=== PATIENT | male | born 1945 | race Caucasian/White ===

== ENCOUNTER 2021-06-20 12:40 | Outpatient (CLI) | payer MEDICARE, OTHER ==
--- NOTE | 2021-06-20 16:28 | Ultrasound Report ---
PROCEDURE: Retroperitoneal INDICATIONS: RENAL MASS TECHNIQUE: Real-time scanning was performed of the retroperitoneal organs, with image documentation. COMPARISON: Reference is made to the CT abdomen dated May 25, 2021. TECHNIQUE: Sonographic evaluation of the kidneys was performed. FINDINGS: RIGHT KIDNEY: Nephrectomy. LEFT KIDNEY: Measures 13.1 cm in length. The renal cortex thickness measures 1.4 to cm. Normal contour and echotexture. Preservation of the cortical thickness and cortical medullary differe ntiation. No hydronephrosis. An exophytic, hypoechoic 1.4 x 1.1 x 1.4 cm lesion is seen superior pole , which exhibits poor through transmission. OTHER: Prevoid bladder volume: 56 mL Post void bladder volume: 0 mL The left ureter jet is seen. The prostate measures 4.3 x 3.6 x 3.8 cm. IMPRESSION: 1.Exophytic, hypoechoic lesion in left kidney as detailed above, which may reflect a proteinaceous or hemorrhagic cyst. Magnetic resonance imaging may be helpful for further characterization. Reviewed by: Justin Buckley MD on 06/20/2021 4:26 PM PDT Approved by: Justin Buckley MD on 06/20/2021 4:26 PM PDT Station ID: [id number]
== END 2021-06-20 12:41 | disposition home or self-care (01) ==
LOC: DI 12:40
PROVIDERS: ATTEND Internal Medicine
DX: C83.19 Mantle cell lymphoma, extranodal and solid organ sites (principal); R93.422 Abnormal radiologic findings on diagnostic imaging of left kidney

== ENCOUNTER 2021-08-18 20:46 | Outpatient (CLI) | payer MEDICARE, OTHER | END 2021-08-18 20:47 | disposition critical access hospital (66) | LOC: EMS 20:46 | DX: Z04.3 Encounter for examination and observation following other accident (principal); M25.551 Pain in right hip | CPT/HCPCS: A0425; A0427 ==

== ENCOUNTER 2021-08-18 21:04 | Emergency (ER) | payer MEDICARE, OTHER ==
[2021-08-18] MEDS ORDERED: HYDROmorphone 1 MG/ML CARPUJECT IVP STA ×2 (21:30→23:00)
[2021-08-18] MEDS ORDERED: SODIUM CHLORIDE 0.9% 1,000 ML IV STA (21:30)
[2021-08-18] MEDS ORDERED: ONDANSETRON 4 MG/2 ML VIAL IVP STA (21:30)
--- NOTE | 2021-08-18 21:33 | ED Physician Documentation ---
PD HPI Fall - Stated complaint Stated Complaint: GLF, RT HIP INJURY - History obtained from History obtained from: Patient - History of Present Illness Mechanism of injury: Other (fell out of chair) Fall distance: Sitting position Where injury occurred: Home Timing - onset: Today Injury(ies) location: Back, Right Lower Extremity Quality of pain: Pain Associated symptoms: No: LOC, AMS, Amnesia, Seizures, Ear drainage, Nasal drainage, Neck pain, Weakness, Paresthesias, Dyspnea, Nausea / vomiting, Hematemesis, Abdominal distension Symptoms improve with: Rest, Meds, Position Worsens with: Movement, Palpation Contributing factors: No: Anticoagulated, Intoxicated Similar symptoms before: Diagnosis (hip fracture) Recently seen: Clinic - Additional information Additional information: 76-year-old male with a history of stage IV mantle cell lymphoma, 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 Right leg 1 inch shorter. Patient has a history of depression and alcoholism in remission. 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 Today he was sitting in his recliner and fell off of the recliner onto his right side. He has injured his right hip and has pain in his back. Transported the hospital by ambulance he is able to move his hip in a range of motion without much pain far extension or flexion causes pain in his back. He has complained this week of some urinary dribbling and this has not been present previously he has reduced his oral intake of fluids to reduce symptoms and he has bought diapers. The patient indicates that he simply has some leaking periodically and he does not have urgency. He does not have a full bladder. He has been placed on some medication for depression recently Review of Systems Constitutional: denies: Fever Eyes: denies: Decreased vision Ears: denies: Ear pain Nose: reports: Congestion. denies: Rhinorrhea / runny nose Throat: denies: Sore throat Cardiac: denies: Chest pain / pressure, Palpitations, Pedal edema, Calf pain Respiratory: reports: Dyspnea, Cough GI: denies: Abdominal Pain, Nausea, Vomiting : reports: Incontinent (new this past 2 weeks). denies: Dysuria, Frequency Skin: denies: Rash Musculoskeletal: reports: Back pain, Extremity pain. denies: Neck pain Neurologic: reports: Generalized weakness. denies: Focal weakness, Numbness PD PAST MEDICAL HISTORY - Past Medical History Cardiovascular: Hypertension Neuro: None : Other Psych: None Musculoskeletal: Osteoarthritis, Fatigue - Past Surgical History Ortho: Hip replacement, Other - Present Medications Home Medications: Ambulatory Orders Medication Instructions Recorded Confirmed Citalopram [CeleXA] 30 mg PO DAILY 04/20/21 06/22/21 Ibuprofen [Advil] 200 mg PO BID 04/20/21 06/22/21 traZODone [Desyrel] 150 mg PO DAILY PM 04/20/21 06/22/21 - Allergies Allergies/Adverse Reactions: Allergies Allergy/AdvReac Type Severity Reaction Status Date / Time No Known Drug Allergies Allergy Verified 04/20/21 12:21 - Social History Smoking Status: Former smoker PD ED PE NORMAL - Vitals Vital signs reviewed: Yes (hypertensive) - General General: Alert and oriented X 3, No acute distress, Well developed/nourished - HEENT HEENT: Atraumatic, PERRL, EOMI - Neck Neck: Supple, no meningeal sign, No bony TTP - Cardiac Cardiac: RRR, No murmur - Respiratory Respiratory: No respiratory distress, Clear bilaterally - Abdomen Abdomen: Normal bowel sounds, Soft, Non tender, Non distended, No organomegaly - Back Back: No CVA TTP, No spinal TTP, Other (pain to palpate lower lumbar spine ) - Derm Derm: Normal color, Warm and dry, No rash - Extremities Extremities: No edema, Other (There is shortening of the right lower ext --- pre-existing. Good ROM with pain to full flexion centered in the lumbar spine. 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, No motor deficit, Normal speech Eye Opening: Spontaneous Motor: Obeys Commands Verbal: Oriented GCS Score: 15 - Psych Psych: Other (mood is withdrawn affect is sad) Results - Vitals Vitals: Vital Signs - 24 hr 08/18/21 08/18/21 08/18/21 21:27 21:32 23:31 Temperature 37.1 C Heart Rate 61 81 69 Respiratory 16 16 18 Rate Blood Pressure 209/89 H 172/96 H 168/90 H O2 Saturation 95 94 95 08/19/21 08/19/21 01:00 03:00 Temperature Heart Rate 72 62 Respiratory 18 14 Rate Blood Pressure 151/94 H 176/82 H O2 Saturation 94 95 Oxygen O2 Source Room air - Labs Labs: Laboratory Tests 08/18/21 08/18/21 08/18/21 21:10 21:10 21:47 WBC 5.1 RBC 4.47 L Hgb 13.4 L Hct 39.7 L MCV 88.8 MCH 30.0 MCHC 33.8 RDW 14.6 Plt Count 136 MPV 10.3 Neut # (Auto) 3.7 Lymph # (Auto) 0.6 L [place] # (Auto) 0.4 Eos # (Auto) 0.2 Baso # (Auto) 0.1 Absolute Nucleated RBC 0.00 Nucleated RBC % 0.0 Sodium 139 Potassium 4.3 Chloride 102 Carbon Dioxide 28 Anion Gap 9.0 BUN 12 Creatinine 0.8 Estimated GFR (MDRD) 94 Glucose 113 H Lactic Acid 0.7 Calcium 9.9 Total Bilirubin 0.5 AST 28 ALT 28 Alkaline Phosphatase 107 Total Protein 6.6 L Albumin 3.9 Globulin 2.7 Albumin/Globulin Ratio 1.4 Lipase 64 H Urine Color Urine Clarity Urine pH Ur Specific [place] Urine Protein Urine Glucose (UA) Urine Ketones Urine Occult Blood Urine Nitrite Urine Bilirubin Urine Urobilinogen Ur Leukocyte Esterase Ur Microscopic Review Urine Culture Comments 08/19/21 02:21 WBC RBC Hgb Hct MCV MCH MCHC RDW Plt Count MPV Neut # (Auto) Lymph # (Auto) [place] # (Auto) Eos # (Auto) Baso # (Auto) Absolute Nucleated RBC Nucleated RBC % Sodium Potassium Chloride Carbon Dioxide Anion Gap BUN Creatinine Estimated GFR (MDRD) Glucose Lactic Acid Calcium Total Bilirubin AST ALT Alkaline Phosphatase Total Protein Albumin Globulin Albumin/Globulin Ratio Lipase Urine Color YELLOW Urine Clarity CLEAR Urine pH 5.5 Ur Specific [place] 1.025 Urine Protein NEGATIVE Urine Glucose (UA) NEGATIVE Urine Ketones NEGATIVE Urine Occult Blood NEGATIVE Urine Nitrite NEGATIVE Urine Bilirubin NEGATIVE Urine Urobilinogen 0.2 (NORMAL) Ur Leukocyte Esterase NEGATIVE Ur Microscopic Review NOT INDICATED Urine Culture Comments NOT INDICATED Procedures - Bedside sono Bedside sono by EMP: bladder is not over distended. - IVC sono (time) 2119 Bedside IVC sono: IVC measures (cm) (0.92), Dehydration (est 1-2 liter deficit) PD MEDICAL DECISION MAKING - ED course Complexity details: reviewed old records, reviewed results, re-evaluated patient, considered differential, d/w patient ED course: 76-year-old male with a fall out of his recliner has pain in his right hip and his back. On arrival patient was mortified at the thought of having a fracture to his hip as he has had 3 operations to this hip and a significant problem with infection. Ultimately he was found to be significantly dehydrated and he was administered intravenous saline he felt much improved his x-rays without evidence of fracture of his lumbar spine or his hip and the patient was discharged home. Ambulating in the emergency department well Departure - Departure Disposition: 01 Home, Self Care Clinical Impression: Dehydration determined by examination Contusion of hip, right Qualifiers: Encounter type: initial encounter Qualified Code(s): S70.01XA - Contusion of right hip, initial encounter Condition: Stable Instructions: ED Dehydration, ED Contusion Hip Follow-Up: Ricky Johnson MD [Primary Care Provider] - Discharge Date/Time: 08/19/21 03:28
[2021-08-18 21:38] LABS: BASOPHILS # (AUTO) 0.1 10^3/uL (0.0-0.1); EOSINOPHILS # (AUTO) 0.2 10^3/uL (0.0-0.7); EOSINOPHILS % (AUTO) 3.2 %; HCT - HEMATOCRIT 39.7 % (42.0-52.0); HGB - HEMOGLOBIN 13.4 g/dL (14.0-18.0); LYMPHOCYTES # (AUTO) 0.6 10^3/uL (1.5-3.5); LYMPHOCYTES % (AUTO) 12.5 %; MEAN CORPUSCULAR HGB CONC 33.8 g/dL (32.0-36.0); MEAN CORPUSCULAR VOLUME 88.8 fL (80.0-94.0); MEAN PLATELET VOLUME 10.3 fL (7.4-11.4); MONOCYTES # (AUTO) 0.4 10^3/uL (0.0-1.0); MONOCYTES % (AUTO) 8.1 %; NEUTROPHILS # (AUTO) 3.7 10^3/uL (1.5-6.6); NEUTROPHILS % (AUTO) 73.8 %; PLT - PLATELET COUNT 136 10^3/uL (130-450); RED BLOOD COUNT 4.47 10^6/uL (4.70-6.10); RED CELL DISTRIBUTION WIDTH 14.6 % (12.0-15.0); WHITE BLOOD COUNT 5.1 x10^3/uL (4.8-10.8)
[2021-08-18 21:47] LABS: ALBUMIN 3.9 g/dL (3.2-5.5); ALBUMIN/GLOBULIN RATIO 1.4 (1.0-2.2); BILIRUBIN,TOTAL 0.5 mg/dL (0.2-1.0); CALCIUM 9.9 mg/dL (8.5-10.3); CREATININE 0.8 mg/dL (0.6-1.2); POTASSIUM 4.3 mmol/L (3.5-5.0); TOTAL PROTEIN 6.6 g/dL (6.7-8.2)
--- NOTE | 2021-08-18 23:06 | XRAY Report ---
PROCEDURE: Chest 1 View X-Ray INDICATIONS: chest pain TECHNIQUE: One view of the chest was acquired. COMPARISON: CT chest 05/25/2021. FINDINGS: Surgical changes and devices: Right-sided port with the catheter tip just dating at the cavoatrial ju nction. The shoulder ORIF. Lungs and pleura: No pleural effusions or pneumothorax. Left upper lobe rounded mass is again seen. Mediastinum: Mediastinal contours appear unchanged. Heart size is normal. Bones and chest wall: No suspicious bony lesions. Overlying soft tissues appear unremarkable. IMPRESSION: No acute cardiopulmonary abnormality. Left upper lobe mass is again seen. Reviewed by: Son Eng MD on 08/18/2021 11:05 PM PST Approved by: Son Eng MD on 08/18/2021 11:05 PM PST Station ID: [id number]
--- NOTE | 2021-08-18 23:08 | XRAY Report ---
PROCEDURE: Lumbar Spine 2 View INDICATIONS: fall hip pain TECHNIQUE: 2 views of the lumbar spine were acquired. COMPARISON: Same day pelvis and hip radiographs. FINDINGS: Bones: 5 [id number] vertebrae are present. There is normal bony alignment. No vertebral body compression fractures. Moderate degenerative change. No suspicious bony lesions. Right hip arthropla sty. Soft tissues: Overlying bowel gas pattern is normal. No suspicious soft tissue calcifications. Vas cular calcifications. IMPRESSION: No acute osseous abnormality. Reviewed by: Son Eng MD on 08/18/2021 11:06 PM PST Approved by: Son Eng MD on 08/18/2021 11:06 PM PST Station ID: [id number]
--- NOTE | 2021-08-18 23:09 | XRAY Report ---
PROCEDURE: Hip w/Pelvis 2-3V RT INDICATIONS: fall hip pain TECHNIQUE: AP pelvis with lateral view(s) of the right hip(s). 4 images. COMPARISON: CT abdomen and pelvis 05/25/2021. FINDINGS: Bones: No acute fractures or dislocations. Stable appearance of the right hip arthroplasty. No perip rosthetic lucency to suggest loosening or infection. Left hip joint space narrowing. Pelvic ring appe ars intact. No suspicious bony lesions. Soft tissues: The visualized bowel gas pattern is normal. No suspicious soft tissue calcifications. IMPRESSION: Stable right hip arthroplasty. No acute fracture demonstrated. Reviewed by: Son Eng MD on 08/18/2021 11:08 PM PST Approved by: Son Eng MD on 08/18/2021 11:08 PM PST Station ID: [id number]
[2021-08-19] MEDS ORDERED: SODIUM CHLORIDE 0.9% 1,000 ML IV STA (00:26)
[2021-08-19 02:26] LABS: BILIRUBIN,URINE NEGATIVE (NEGATIVE); GLUCOSE, URINE (UA) NEGATIVE (NEGATIVE); KETONES,URINE (UA) NEGATIVE (NEGATIVE); LEUKOCYTE ESTERASE, URINE NEGATIVE (NEGATIVE); NITRITE,URINE NEGATIVE (NEGATIVE); OCCULT BLOOD,URINE NEGATIVE (NEGATIVE); PH,URINE 5.5 PH (5.0-7.5); PROTEIN,URINE NEGATIVE (NEGATIVE); UROBILINOGEN,URINE 0.2 (NORMAL) E.U./dL (NORMAL)
[2021-08-19 02:27] LABS: CLARITY,URINE CLEAR (CLEAR)
[2021-08-19 03:15] VITALS: BP 176/82
== END 2021-08-19 03:28 | disposition home or self-care (01) ==
LOC: EDUNIT# → ED 21:04 → SUPCPDRO 21:04 → ED 08-19 03:28
DX: S70.01XA Contusion of right hip, initial encounter (principal); W07.XXXA Fall from chair, initial encounter; Y92.009 Unspecified place in unspecified non-institutional (private) residence as the place of occurrence of the external cause; I10 Essential (primary) hypertension; Z87.891 Personal history of nicotine dependence; F32.A Depression, unspecified; E86.0 Dehydration
CPT/HCPCS: 36415; 71045; 72100; 73502; 80053; 81003; 83605; 83690; 85025; 87040; 96361; 96374; 96375; 96376; 99282; 99284; J1170; 81001; 87086

== ENCOUNTER 2021-08-25 13:37 | Outpatient (CLI) | payer MEDICARE, OTHER | END 2021-08-25 13:38 | disposition critical access hospital (66) | LOC: EMS 13:37 | DX: R53.81 Other malaise (principal) | CPT/HCPCS: A0425; A0429 ==

== ENCOUNTER 2021-08-25 14:00 | Emergency (ER) | payer MEDICARE, OTHER ==
[2021-08-25] MEDS ORDERED: KETOROLAC 30 MG/ML VIAL IVP STA (14:11)
--- NOTE | 2021-08-25 14:13 | ED Physician Documentation ---
PD HPI BACK PAIN - Stated complaint Stated Complaint: WEAKNESS POST FALL - History obtained from History obtained from: Patient, EMS - Additional information Additional information: This is a 76-year-old gentleman with history of mantle cell lymphoma, getting IVIG and history of nephrectomy. He has a right hip prosthesis with chronic pain there are multiple revisions needing a walker and a prosthetic on the bottom of his shoe because of a shortened leg and alcoholism in remission with last drink about 3 weeks ago. He was seen here on the with leg and back pain after a fall. Relevant x-rays were negative. Since then he complains of nausea but no vomiting, wheezing and productive cough as well as sneezing and rhinorrhea. Sensation of subjective fevers and shortness of breath. There is no associated chest pain. His back is hurting quite a bit. Although he complains of nausea he declines nausea medicine at this juncture but would like something for pain. He says he was having some altered mental status recently because he overtook some of his medications for depression but he does not know what. Further info from Asiya, his daughter who is an RN. He was seen in clinic after the fall. Rx ultram and lorazepam and sertraline. Stopped citalopram. Review of Systems Ten Systems: 10 systems reviewed and negative Constitutional: reports: Fever, Chills Nose: reports: Rhinorrhea / runny nose Cardiac: denies: Chest pain / pressure, Palpitations Respiratory: reports: Dyspnea, Cough GI: reports: Nausea, Constipation. denies: Abdominal Pain PD PAST MEDICAL HISTORY - Past Medical History Cardiovascular: Hypertension Neuro: None : Other Psych: None Musculoskeletal: Osteoarthritis, Fatigue - Past Surgical History Ortho: Hip replacement, Other - Present Medications Home Medications: Ambulatory Orders Medication Instructions Recorded Confirmed Citalopram [CeleXA] 30 mg PO DAILY 04/20/21 06/22/21 Ibuprofen [Advil] 200 mg PO BID 04/20/21 06/22/21 traZODone [Desyrel] 150 mg PO DAILY PM 04/20/21 06/22/21 HYDROcod/ACETAM 5/325 [[place] 5/325] 1 - 2 tab PO Q6H PRN #20 tablet 08/25/21 - Allergies Allergies/Adverse Reactions: Allergies Allergy/AdvReac Type Severity Reaction Status Date / Time No Known Drug Allergies Allergy Verified 08/25/21 14:20 - Social History Smoking Status: Former smoker PD ED PE NORMAL - Vitals Vital signs reviewed: Yes - General General: Alert and oriented X 3, Other (Appears comfortable at rest but is complaining of back pain, he is able to ambulate, but has some weakness in the legs which he says is chronic. He is able to transfer well with the use of his arms.) - HEENT HEENT: PERRL, EOMI - Neck Neck: Supple, no meningeal sign, No bony TTP - Cardiac Cardiac: RRR (With occasional extrasystoles), No murmur - Respiratory Respiratory: No respiratory distress, Clear bilaterally - Abdomen Abdomen: Normal bowel sounds, Soft, Non tender - Back Back: No CVA TTP, Other (Tenderness around L5/S1) - Derm Derm: Normal color, Warm and dry - Extremities Extremities: No edema, No calf tenderness / cord - Neuro Neuro: Alert and oriented X 3, No sensory deficit, Normal speech, Other (Weak in the legs, symmetric, he is able to walk and bear weight but seems unsteady due to it. Uses a walker religiously.) Results - Vitals Vitals: Vital Signs - 24 hr 08/25/21 08/25/21 08/25/21 14:11 14:56 16:00 Temperature 37.2 C Heart Rate 71 70 72 Respiratory 24 19 Rate Blood Pressure 192/94 H 185/85 H 150/100 H O2 Saturation 96 94 94 Oxygen O2 Source Room air - EKG (time done) 1416 Rate: Rate (enter#) (61) Rhythm: NSR [place]: Normal Intervals: Normal NE QRS: Normal Ischemia: Non specific changes - Labs Labs: Laboratory Tests 08/25/21 08/25/21 08/25/21 14:20 14:20 14:20 WBC 12.8 H RBC 4.49 L Hgb 13.3 L Hct 38.0 L MCV 84.6 MCH 29.6 MCHC 35.0 RDW 14.4 Plt Count 174 MPV 9.7 Neut # (Auto) 11.6 H Lymph # (Auto) 0.5 L [place] # (Auto) 0.6 Eos # (Auto) 0.0 Baso # (Auto) 0.0 Absolute Nucleated RBC 0.00 Nucleated RBC % 0.0 Sodium 131 L Potassium 3.4 L Chloride 96 L Carbon Dioxide 25 Anion Gap 10.0 BUN 12 Creatinine 0.8 Estimated GFR (MDRD) 94 Glucose 143 H Calcium 9.7 Phosphorus 1.9 L Magnesium 2.1 Troponin I High Sens 7.5 B-Natriuretic Peptide Urine Color Urine Clarity Urine pH Ur Specific [place] Urine Protein Urine Glucose (UA) Urine Ketones Urine Occult Blood Urine Nitrite Urine Bilirubin Urine Urobilinogen Ur Leukocyte Esterase Ur Microscopic Review Urine Culture Comments Nasal Adenovirus (PCR) Nasal B. parapertussis DNA (PCR) Nasal Coronavir 229E PCR Nasal Coronavir HKU1 PCR Nasal Coronavir NL63 PCR Nasal Coronavir OC43 PCR Nasal Enterovir/Rhinovir PCR Nasal Influenza B PCR Nasal Influenza A PCR Nasal Parainfluen 1 PCR Nasal Parainfluen 2 PCR Nasal Parainfluen 3 PCR Nasal Parainfluen 4 PCR Nasal RSV (PCR) Nasal B.pertussis DNA PCR Nasal C.pneumoniae (PCR) [place] Human Metapneumo PCR Nasal M.pneumoniae (PCR) Nasal SARS-CoV-2 (PCR) 08/25/21 08/25/21 08/25/21 14:20 15:03 15:27 WBC RBC Hgb Hct MCV MCH MCHC RDW Plt Count MPV Neut # (Auto) Lymph # (Auto) [place] # (Auto) Eos # (Auto) Baso # (Auto) Absolute Nucleated RBC Nucleated RBC % Sodium Potassium Chloride Carbon Dioxide Anion Gap BUN Creatinine Estimated GFR (MDRD) Glucose Calcium Phosphorus Magnesium Troponin I High Sens B-Natriuretic Peptide 175 H Urine Color YELLOW Urine Clarity CLEAR Urine pH 7.0 Ur Specific [place] 1.015 Urine Protein NEGATIVE Urine Glucose (UA) NEGATIVE Urine Ketones 15 H Urine Occult Blood NEGATIVE Urine Nitrite NEGATIVE Urine Bilirubin NEGATIVE Urine Urobilinogen 0.2 (NORMAL) Ur Leukocyte Esterase NEGATIVE Ur Microscopic Review NOT INDICATED Urine Culture Comments NOT INDICATED Nasal Adenovirus (PCR) NOT DETECTED Nasal B. parapertussis DNA (PCR) NOT DETECTED Nasal Coronavir 229E PCR NOT DETECTED Nasal Coronavir HKU1 PCR NOT DETECTED Nasal Coronavir NL63 PCR NOT DETECTED Nasal Coronavir OC43 PCR NOT DETECTED Nasal Enterovir/Rhinovir PCR NOT DETECTED Nasal Influenza B PCR NOT DETECTED Nasal Influenza A PCR NOT DETECTED Nasal Parainfluen 1 PCR NOT DETECTED Nasal Parainfluen 2 PCR NOT DETECTED Nasal Parainfluen 3 PCR NOT DETECTED Nasal Parainfluen 4 PCR DETECTED A Nasal RSV (PCR) NOT DETECTED Nasal B.pertussis DNA PCR NOT DETECTED Nasal C.pneumoniae (PCR) NOT DETECTED [place] Human Metapneumo PCR NOT DETECTED Nasal M.pneumoniae (PCR) NOT DETECTED Nasal SARS-CoV-2 (PCR) NOT DETECTED - Rads (name of study) 1v cxr Radiology: EMP read contemporaneously (Suggestion of left-sided lung mass on chest x-ray probably corresponds to hamartoma seen on CT in May. No infiltrate or pneumothorax or CHF.) CT L spine Radiology: EMP read contemporaneously (L3 burst compression frx) PD MEDICAL DECISION MAKING - ED course ED course: 76yo M with recent fall, x-rays negative but now known to have a L3 compression fracture on CT. Mildly dehydrated and had some episodes of altered mental stat us due to overtaking of Ultram combined with lorazepam. His daughter will manage his meds, but will need some pain medication for the compression fracture at least in the short-term. He has URI symptoms and was checked for Covid, negative for that but found to have nasal parainfluenza 4. Departure - Departure Disposition: 01 Home, Self Care Clinical Impression: Dehydration determined by examination, Parainfluenza Compression fracture of L3 vertebra Qualifiers: Encounter type: initial encounter Qualified Code(s): S32.030A - Wedge compression fracture of third lumbar vertebra, initial encounter for closed fracture Condition: Good Record reviewed to determine appropriate education?: Yes Instructions: ED Fx Comp Vertebral Prescriptions: HYDROcod/ACETAM 5/325 [[place] 5/325] 1 - 2 tab PO Q6H PRN #20 tablet PRN Reason: Pain Comments: Prescription sent electronically to [facility] pharmacy in [place]. We found you to mildly dehydrated based on labs and an acute but mild compression fracture of L3. I expect this to her for many weeks, but hopefully only severely for a few. After that time he can take Tylenol as needed for pain. Continue to abstain from alcohol. Blood pressure was elevated today, follow-up with your doctor in a week or so for recheck. Otherwise continue current medications. Make sure to take medications only as prescribed and not over take them. I am prescribing a short course of narcotic pain medication for you. These are potentially dangerous and addictive medications that should be used carefully. These medications may constipate you. Take an yfyx-xqz-fqwwcfu stool softener (docusate) twice daily with plenty of water while taking these medications. If you go 24 hours without a bowel movement, take caqw-jly-dkycowb miralax, per package instructions. Do not drink or drive while taking these medications. If you received narcotic or sedating medications while in the emergency department, do not drive for 24 hours. Store this medication in a safe, secure place and out of reach of children. It is a violation of federal law to give or sell this medication to another person or to use in a manner other than prescribed. The ED will not refill narcotic prescriptions, including prescriptions lost or stolen. To dispose of unwanted medications: 1. [facility] [address] in [place] has a medication drop box. They accept prescription medications (in pill form) Sunday through Sunday 9:00 a.m. to 5:00 p.m. 2. The [facility] accepts prescription medications (in pill form only) for disposal year round. Call for more information. 3. Contact the [facility] for the next [facility] sponsored prescription drug collection event. , [phone], or [phone]; Note that many narcotic pain relievers also contain Tylenol/acetaminophen. Please ensure that your total dose of acetaminophen from all sources does not exceed 3 g (3000 mg) per day.
[2021-08-25 14:26] LABS: BASOPHILS % (AUTO) 0.3 %; EOSINOPHILS % (AUTO) 0.2 %; HGB - HEMOGLOBIN 13.3 g/dL (14.0-18.0); LYMPHOCYTES # (AUTO) 0.5 10^3/uL (1.5-3.5); LYMPHOCYTES % (AUTO) 3.8 %; MEAN CORPUSCULAR HEMOGLOBIN 29.6 pg (27.0-31.0); MEAN CORPUSCULAR VOLUME 84.6 fL (80.0-94.0); MEAN PLATELET VOLUME 9.7 fL (7.4-11.4); MONOCYTES # (AUTO) 0.6 10^3/uL (0.0-1.0); MONOCYTES % (AUTO) 4.7 %; NEUTROPHILS # (AUTO) 11.6 10^3/uL (1.5-6.6); NEUTROPHILS % (AUTO) 90.8 %; PLT - PLATELET COUNT 174 10^3/uL (130-450); RED BLOOD COUNT 4.49 10^6/uL (4.70-6.10); RED CELL DISTRIBUTION WIDTH 14.4 % (12.0-15.0); WHITE BLOOD COUNT 12.8 x10^3/uL (4.8-10.8)
--- NOTE | 2021-08-25 14:42 | XRAY Report ---
PROCEDURE: Chest 1 View X-Ray INDICATIONS: cough TECHNIQUE: One view of the chest was acquired. COMPARISON: 08/18/2021 and 05/25/2021. FINDINGS: Surgical changes and devices: Right-sided Port-A-Cath tip is in SVC. ORIF hardware in left proximal h umeral shaft is again seen. Lungs and pleura: No pleural effusions or pneumothorax. 3.1 x 2.9 cm mass in left mid to lower lung field is again seen unchanged from prior study. Right lung is clear. Mediastinum: Mediastinal contours appear normal. Heart size is normal. Bones and chest wall: No suspicious bony lesions. Overlying soft tissues appear unremarkable. IMPRESSION: Suggestion of left lower lobe mass unchanged from prior study. No focal infiltrate, pleural effusion or pneumothorax. Reviewed by: Porfirio Dwyer MD on 08/25/2021 2:41 PM PST Approved by: Porfirio Dwyer MD on 08/25/2021 2:41 PM PST Station ID: [id number]
[2021-08-25 14:45] LABS: CALCIUM 9.7 mg/dL (8.5-10.3); CREATININE 0.8 mg/dL (0.6-1.2); MAGNESIUM 2.1 mg/dL (1.7-2.8); PHOSPHORUS 1.9 mg/dL (2.5-4.6); POTASSIUM 3.4 mmol/L (3.5-5.0)
[2021-08-25] MEDS ORDERED: NEUTRA-PHOS 250 MG TABLET PO STA (15:04)
[2021-08-25] MEDS ORDERED: SODIUM CHLORIDE 0.9% 1,000 ML IV STA (15:19)
--- NOTE | 2021-08-25 15:29 | CT Report ---
PROCEDURE: LUMBAR SPINE WO INDICATIONS: back inj TECHNIQUE: Noncontrast 3 mm thick sections acquired from the T12 level to the sacrum. Sagittal and coronal refo rmats were constructed. For radiation dose reduction, the following was used: automated exposure co ntrol, adjustment of mA and/or kV according to patient size. COMPARISON: None. FINDINGS: Image quality: Excellent. Bones: No acute compression fracture involving the superior endplate of the L3 vertebral body is not ed. Fracture lucency extends through the posterior cortex compatible with burst type compression frac ture. L3 compression fracture results in approximately 25% loss of normal central anterior vertebral body height. There is a mild, approximately 3-4 mm of osseous retropulsion associated with the L3 com pression fracture. No kyphosis associated with the L3 compression fracture. There is normal bony alignment. No suspicious lytic or blastic bony lesions. Wddm-ra-kvvmznid degener ative disc changes noted throughout the lumbar spine. Mild L3-L4, L4-L5 and L5-S1 facet hypertrophy. No pars defects. Partially visualized right hip arthroplasty. Soft tissues: No retroperitoneal masses or hematomas. Visualized aorta is normal in caliber. Scatte red atherosclerotic calcifications are noted in the visualized abdominal and pelvic vasculature. IMPRESSION: Acute L3 burst type compression fracture. Reviewed by: Marina Graves MD, PhD on 08/25/2021 3:28 PM PST Approved by: Marina Graves MD, PhD on 08/25/2021 3:28 PM PST Station ID: [id number]
[2021-08-25 15:52] LABS: BILIRUBIN,URINE NEGATIVE (NEGATIVE); GLUCOSE, URINE (UA) NEGATIVE (NEGATIVE); KETONES,URINE (UA) 15 mg/dL (NEGATIVE); LEUKOCYTE ESTERASE, URINE NEGATIVE (NEGATIVE); NITRITE,URINE NEGATIVE (NEGATIVE); OCCULT BLOOD,URINE NEGATIVE (NEGATIVE); PROTEIN,URINE NEGATIVE (NEGATIVE); UROBILINOGEN,URINE 0.2 (NORMAL) E.U./dL (NORMAL)
[2021-08-25 15:53] LABS: CLARITY,URINE CLEAR (CLEAR)
[2021-08-25 16:29] LABS: CORONAVIRUS 229E-RESP PCR NOT DETECTED; CORONAVIRUS HKU1-RESP PCR NOT DETECTED; CORONAVIRUS NL63-RESP PCR NOT DETECTED; CORONAVIRUS OC43-RESP PCR NOT DETECTED; HUMAN METAPNEUMOVIRUS NOT DETECTED; INFLUENZA A- RESP PCR PANEL NOT DETECTED; RHINOVIRUS/ENTEROVIRUS NOT DETECTED; SARS-CoV-2 -RESP PCR PANEL NOT DETECTED
[2021-08-25 16:30] LABS: B. PARAPERTUSSIS- RESP PCR PAN NOT DETECTED; B. PERTUSSIS- RESP PCR PANEL NOT DETECTED; C. PNEUMONIAE- RESP PCR PANEL NOT DETECTED; INFLUENZA B - RESP PCR PANEL NOT DETECTED; M. PNEUMONIAE- RESP PCR PANEL NOT DETECTED; PARAINFLUENZA VIRUS 1 NOT DETECTED; PARAINFLUENZA VIRUS 2 NOT DETECTED; PARAINFLUENZA VIRUS 3 NOT DETECTED; PARAINFLUENZA VIRUS 4 DETECTED; RSV- RESP PCR PANEL NOT DETECTED
[2021-08-25 17:12] VITALS: BP 190/80
== END 2021-08-25 17:58 | disposition home or self-care (01) ==
LOC: EDUNIT# → ED 14:00
DX: E86.0 Dehydration (principal); B34.8 Other viral infections of unspecified site; S32.030A Wedge compression fracture of third lumbar vertebra, initial encounter for closed fracture; X58.XXXA Exposure to other specified factors, initial encounter; I10 Essential (primary) hypertension; Z87.891 Personal history of nicotine dependence; Z20.822 Contact with and (suspected) exposure to COVID-19
CPT/HCPCS: 36415; 71045; 72131; 80048; 81003; 83735; 83880; 84100; 84484; 85025; 87631; 93005; 96374; 99284; A9270; 0202U; 81001; 87086

== ENCOUNTER 2021-08-30 20:27 | Emergency (ER) | payer MEDICARE, OTHER ==
[2021-08-30] MEDS: KETOROLAC 30 MG/ML VIAL IM STA (21:39)
[2021-08-30] MEDS: LIDOCAINE PATCH 5% TOP STA (21:42)
--- NOTE | 2021-08-30 21:50 | ED Physician Documentation ---
History of Present Illness - Stated complaint Stated Complaint: CONSTIPATION - Chief complaint Chief Complaint: Abd Pain - History obtained from History obtained from: Patient - Additonal information Additional information: 76yM with pmh recent back injury on narcotic pain meds p/w nausea since starting the meds as well as constipation and bloating X 10 days. denies abdominal pain but does state he has been having bloating and watery small volume brown stool and sensation of constipation. has appointment with his pcp tomorrow. denies fever, vomiting. back pain has been controlled with lidocaine patch. Review of Systems Ten Systems: 10 systems reviewed and negative Constitutional: denies: Fever GI: reports: Nausea, Diarrhea, Other (bloating). denies: Vomiting Musculoskeletal: reports: Back pain PD PAST MEDICAL HISTORY - Past Medical History Cardiovascular: Hypertension Respiratory: COPD Neuro: None Endocrine/Autoimmune: None GI: None : Other HEENT: None Psych: None Musculoskeletal: Osteoarthritis, Fatigue Derm: None - Past Surgical History Past Surgical History: Yes Ortho: Hip replacement, Other - Present Medications Home Medications: Ambulatory Orders Medication Instructions Recorded Confirmed Citalopram [CeleXA] 30 mg PO DAILY 04/20/21 06/22/21 Ibuprofen [Advil] 200 mg PO BID 04/20/21 06/22/21 traZODone [Desyrel] 150 mg PO DAILY PM 04/20/21 06/22/21 HYDROcod/ACETAM 5/325 [[place] 5/325] 1 - 2 tab PO Q6H PRN #20 tablet 08/25/21 Ketorolac [Toradol] 10 mg PO Q6H PRN #30 tablet 08/30/21 Ondansetron Odt [Zofran Odt] 4 mg TL Q6H PRN #10 tablet 08/30/21 - Allergies Allergies/Adverse Reactions: Allergies Allergy/AdvReac Type Severity Reaction Status Date / Time No Known Drug Allergies Allergy Verified 08/30/21 20:32 - Social History Does the pt smoke?: No Smoking Status: Former smoker Does the pt drink ETOH?: No Does the pt have substance abuse?: No - Immunizations Immunizations are current?: No Immunizations: TDAP current <10years, Other immun current - POLST Patient has POLST: No PD ED PE NORMAL - Vitals Vital signs reviewed: Yes - General General: Alert and oriented X 3, No acute distress, Well developed/nourished - HEENT HEENT: Atraumatic, PERRL, EOMI - Abdomen Abdomen: Non tender, Non distended - Rectal Rectal: Other (brown watery stool on EMMA) - Derm Derm: Normal color, Warm and dry - Extremities Extremities: No deformity, Other (2+ BL DP pulses. normal movement and sensation) - Neuro Neuro: Alert and oriented X 3, No motor deficit, No sensory deficit Results - Vitals Vitals: Vital Signs - 24 hr 08/30/21 08/30/21 20:32 22:04 Temperature 36.7 C 36.6 C Heart Rate 63 62 Respiratory 16 16 Rate Blood Pressure 180/90 H 140/80 H O2 Saturation 94 96 Oxygen O2 Source Room air PD MEDICAL DECISION MAKING - ED course ED course: 76-year-old man presents with constipation after being prescribed narcotic medication for back pain related to fall recently. Patient has appointment with his primary doctor tomorrow. He states that he has been nauseous and thinks it is related to the pain medication and has not taken it for the past 2 days but is having pain that improves with lidocaine patch. History of 3 abdominal surgeries (appendix, lap Edith, nephrectomy for kidney cancer). Passing normal gas and making watery brown stool. +abdominal bloating but no pain. Rectal exam brown watery stool. abdominal exam completely benign. Advised patient to f/u with pmd tomorrow. He may take tylenol and toradol as needed for back pain as well as lidocaine patch. no nausea at present but will send home with a couple of zofran. return precautions given. Departure - Departure Disposition: 01 Home, Self Care Clinical Impression: Constipation, Bloating Condition: Stable Instructions: Constipation Prescriptions: Ketorolac [Toradol] 10 mg PO Q6H PRN #30 tablet PRN Reason: Pain Ondansetron Odt [Zofran Odt] 4 mg TL Q6H PRN #10 tablet PRN Reason: Nausea / Vomiting Comments: You are seen in the emergency department for constipation and for back pain. Take MiraLAX and senna/docusate and follow-up with your primary doctor in the morning. You can take Toradol and Tylenol at the same time since they have different mechanisms. You can also use the lidocaine patch for back pain relief. Return to the emergency department if you have any new or worsening symptoms or other concerns. Discharge Date/Time: 08/30/21 22:04
[2021-08-30 22:06] VITALS: BP 140/80
== END 2021-08-30 22:04 | disposition home or self-care (01) ==
LOC: ED 20:27
DX: K59.00 Constipation, unspecified (principal); R14.0 Abdominal distension (gaseous); I10 Essential (primary) hypertension; Z87.891 Personal history of nicotine dependence
CPT/HCPCS: 96372; 99283; A9270

== ENCOUNTER 2021-12-20 09:44 | Emergency (ER) | payer MEDICARE, OTHER ==
--- NOTE | 2021-12-20 10:02 | ED Physician Documentation ---
PD HPI Fall - Stated complaint Stated Complaint: BACL PX,R HIP PX,FALL - Chief complaint Chief Complaint: Trauma Ext - History obtained from History obtained from: Patient - History of Present Illness Mechanism of injury: Lost balance Fall distance: Standing position Where injury occurred: Home Timing - onset: How many days ago (3) Injury(ies) location: Back, Right Lower Extremity (posterior hip) Associated symptoms: No: LOC, AMS, Neck pain, Weakness, Paresthesias Contributing factors: No: Anticoagulated Similar symptoms before: Diagnosis (had L3 compression fracture with fall last year and healed up okay after 4-6 weeks. Was doing okay after that until 3 days ago when fell again.) Recently seen: Not recently seen Review of Systems Constitutional: denies: Fever, Chills Nose: denies: Rhinorrhea / runny nose, Congestion Throat: denies: Sore throat Respiratory: denies: Cough GI: denies: Abdominal Pain, Nausea, Vomiting, Diarrhea Skin: denies: Abrasion (s), Laceration (s) Musculoskeletal: reports: Back pain Neurologic: denies: Focal weakness, Numbness, Altered mental status, Headache, Head injury PD PAST MEDICAL HISTORY - Past Medical History Cardiovascular: Hypertension Respiratory: COPD Neuro: None Endocrine/Autoimmune: None GI: None : Other HEENT: None Psych: None Musculoskeletal: Osteoarthritis, Fatigue Derm: None - Past Surgical History Past Surgical History: Yes Ortho: Hip replacement, Other - Present Medications Home Medications: Ambulatory Orders Medication Instructions Recorded Confirmed traZODone [Desyrel] 150 mg PO DAILY PM 04/20/21 12/20/21 Sertraline [Zoloft] 150 mg PO DAILY 10/06/21 12/20/21 Acetaminophen [Acetaminophen Extra 1,000 mg PO BID 12/20/21 12/20/21 Strength] Calcitonin [Fortical] 1 sprays AMANDA DAILY #1 bottle 12/20/21 LORazepam [Ativan] 0.5 mg PO BID PRN 12/20/21 12/20/21 Lidocaine Patch 5% [Lidoderm Patch] 1 patch TOP DAILY PRN #14 patch 12/20/21 oxyCODONE [Roxicodone] 5 mg PO Q6H PRN #20 tablet 12/20/21 - Allergies Allergies/Adverse Reactions: Allergies Allergy/AdvReac Type Severity Reaction Status Date / Time No Known Drug Allergies Allergy Verified 12/20/21 09:49 - Social History Does the pt smoke?: No Smoking Status: Former smoker Does the pt drink ETOH?: No Does the pt have substance abuse?: No - Immunizations Immunizations are current?: No Immunizations: TDAP current <10years, Other immun current - POLST Patient has POLST: No PD ED PE NORMAL - Vitals Vital signs reviewed: Yes - General General: Alert and oriented X 3, Well developed/nourished, Other (appears uncomfortable with back and right hip movement. ) - HEENT HEENT: Atraumatic - Neck Neck: Supple, no meningeal sign, No bony TTP, C-Spine cleared by NEXUS criteria - Cardiac Cardiac: RRR, No murmur - Respiratory Respiratory: Clear bilaterally - Abdomen Abdomen: Normal bowel sounds, Soft, Non tender - Back Back: No CVA TTP, Other (tender to percussion mid lumbar area. No skin sores. ) - Derm Derm: Normal color, Warm and dry - Neuro Neuro: Alert and oriented X 3, No motor deficit, No sensory deficit, Normal speech Results - Vitals Vitals: Vital Signs - 24 hr 12/20/21 12/20/21 12/20/21 09:51 10:30 12:00 Temperature 37.0 C Heart Rate 52 L 49 L 50 L Respiratory 18 16 15 Rate Blood Pressure 137/85 H 181/104 H 184/71 H O2 Saturation 97 99 97 12/20/21 12/20/21 14:00 14:05 Temperature Heart Rate 56 L 56 L Respiratory 16 16 Rate Blood Pressure 212/86 H 212/86 H O2 Saturation 97 97 Oxygen O2 Source Room air - Rads (name of study) lumbar and pelvic CT Radiology: Prelim report reviewed (worsened loss of disc height L3 c/w refracture. NO other fractures. ), See rad report PD MEDICAL DECISION MAKING - ED course Complexity details: reviewed results (worsening height low of L3 c/w refracture. ), considered differential, d/w patient, d/w family (daughter) Departure - Departure Disposition: 01 Home, Self Care Clinical Impression: Acute lumbar back pain Qualifiers: Back pain laterality: unspecified Sciatica presence: without sciatica Qualified Code(s): M54.50 - Low back pain, unspecified Compression fx, lumbar spine Qualifiers: Encounter type: initial encounter Lumbar vertebra fracture level: L3 Qualified Code(s): S32.030A - Wedge compression fracture of third lumbar vertebra, initial encounter for closed fracture Condition: Stable Record reviewed to determine appropriate education?: Yes Instructions: ED Fx Comp Vertebral Follow-Up: Ricky Johnson MD [Primary Care Provider] - Prescriptions: Calcitonin [Fortical] 1 sprays AMANDA DAILY #1 bottle Lidocaine Patch 5% [Lidoderm Patch] 1 patch TOP DAILY PRN #14 patch PRN Reason: pain oxyCODONE [Roxicodone] 5 mg PO Q6H PRN #20 tablet PRN Reason: Pain Comments: The CT scan does show a worsening or reinjury of the prior compression fracture with further loss of height consistent with a new compression fracture at the same site. Use the lidocaine patches daily as you did the prior time. I Shae order for the facility to be able to do that. Use Aleve/naproxen 1 tablet to 2 tablets twice daily with food for the next 7 days. Add acetaminophen 1000 mg 3 times a day which is an increase from your twice a day currently. Do that for the next 10 to 14 days. Calcitonin nasal spray and nostril daily for the next 4 weeks to try to improve the healing of the fracture. Add oxycodone every 6-8 hours if needed for worse pain. I transmitted your prescriptions to [facility]. My narcotic instructions I am prescribing a short course of narcotic pain medication for you. These are potentially dangerous and addictive medications that should be used carefully. These medications may constipate you. Take an [id number] stool softener such as docusate twice daily with plenty of water while taking these medications. If you go 24 hours without a bowel movement, take [id number] MiraLAX, per package instructions. Do not drink or drive while taking these medications. If you received narcotic or sedating medications while in the emergency department do not drive for 24 hours. Store this medication in a safe, secure place and out of reach of children. It is a violation of federal law to give or sell this medication to another person or to use in a manner other than prescribed. The ED will not refill narcotic prescriptions, including prescriptions lost or stolen. You can dispose of unwanted medications at the [facility]'s office or at several pharmacies such as [facility]. Forms: Activity restrictions Discharge Date/Time: 12/20/21 14:31
[2021-12-20] MEDS ORDERED: KETOROLAC 30 MG/ML VIAL IM STA (10:25)
[2021-12-20] MEDS ORDERED: HYDROmorphone 1 MG/ML CARPUJECT IM STA ×2 (10:26→12:43)
--- NOTE | 2021-12-20 13:08 | CT Report ---
PROCEDURE: CT lumbar spine without contrast INDICATIONS: fall with pain low back and right posterior pelvis TECHNIQUE: Noncontrast 3 mm thick sections acquired from the T12 level to the sacrum. Sagittal and coronal refo rmats were constructed. For radiation dose reduction, the following was used: automated exposure co ntrol, adjustment of mA and/or kV according to patient size. COMPARISON: 08/25/2021 FINDINGS: Image quality: Excellent. L3 compression fracture has increased in height loss compared to the prior exam. Retropulsed fracture fragment results in moderate central stenosis at L2-3. Superior endplate Schmorl's node has also inc reased. Multilevel degenerative disc disease and arthropathy is stable from the prior exam results in mild ce ntral stenosis at L4-5 Soft tissues: No retroperitoneal masses or hematomas. Visualized aorta is normal in caliber. Edith cystectomy. Atherosclerotic calcification of the abdominal aorta without evidence of aneurysm. IMPRESSION: 1. New L3 compression fracture with retropulsed fracture fragment results in moderate central stenosi s at L2-3. 2. Stable multilevel generative disc disease and arthropathy Reviewed by: Jerome Heck MD on 12/20/2021 12:07 PM AKRALPH Approved by: Jerome Heck MD on 12/20/2021 12:07 PM AKDT Station ID: [id number]
--- NOTE | 2021-12-20 13:10 | CT Report ---
PROCEDURE: CT pelvis without contrast INDICATIONS: fall with pain low back and right posterior pelvis TECHNIQUE: Noncontrast 3 mm axial sections acquired through the bony pelvis, with coronal and sagittal reformatt ing. For radiation dose reduction, the following was used: automated exposure control, adjustment of mA and/or kV according to patient size. COMPARISON: None. FINDINGS: Degenerative changes noted in the lower lumbar spine and sacroiliac joints noted. Multiple diverticul a arise from the sigmoid colon without evidence of diverticulitis. Dense aortic atherosclerotic vascu lar calcification present without aneurysm. There is a right hip prosthesis in good position. Pelvic ring is intact without evidence of acute fracture. IMPRESSION: 1. No evidence of fracture in the pelvis. 2. Chronic findings include right hip prosthesis, dense aortic atherosclerotic calcification, sigmoid diverticulosis without diverticulitis Reviewed by: Jerome Heck MD on 12/20/2021 12:09 PM PIERRE Approved by: Jerome Heck MD on 12/20/2021 12:09 PM AKRALPH Station ID: [id number]
[2021-12-20 14:01] VITALS: BP 212/86
== END 2021-12-20 14:31 | disposition home or self-care (01) ==
LOC: ED 09:44
DX: S32.030A Wedge compression fracture of third lumbar vertebra, initial encounter for closed fracture (principal); W19.XXXA Unspecified fall, initial encounter; Y92.009 Unspecified place in unspecified non-institutional (private) residence as the place of occurrence of the external cause; I10 Essential (primary) hypertension; Z87.891 Personal history of nicotine dependence
CPT/HCPCS: 72131; 72192; 96372; 99283; 99284; J1170

== ENCOUNTER 2022-03-13 03:17 | Emergency (ER) | payer MEDICARE, OTHER ==
--- NOTE | 2022-03-13 03:27 | ED Physician Documentation ---
History of Present Illness - Stated complaint Stated Complaint: cough, headache - Chief complaint Chief Complaint: General - History obtained from History obtained from: Patient - History of Present Illness Timing: How many days ago (2) Improved by: no ameliorating factors Worsened by: no exacerbating factors - Additonal information Additional information: c/o 2 days of sore throat, generalized headache, generalized weakness, moist cough, low grade fevers (Tmax 100). Review of Systems Constitutional: reports: Chills, Myalgias, Fatigue, Sweats, Other (Tmax 100 so not fever if using 100.4 as cutoff) Throat: reports: Sore throat Cardiac: reports: Reviewed and negative Respiratory: reports: Cough. denies: Dyspnea, Hemoptysis, Wheezing GI: reports: Reviewed and negative Skin: denies: Rash Neurologic: reports: Generalized weakness, Headache PD PAST MEDICAL HISTORY - Past Medical History Cardiovascular: Hypertension Respiratory: COPD Neuro: None Endocrine/Autoimmune: None GI: None : Other HEENT: None Psych: None Musculoskeletal: Osteoarthritis, Fatigue Derm: None - Past Surgical History Past Surgical History: Yes Ortho: Hip replacement, Other - Present Medications Home Medications: Ambulatory Orders Medication Instructions Recorded Confirmed traZODone [Desyrel] 150 mg PO DAILY PM 04/20/21 03/01/22 Sertraline [Zoloft] 150 mg PO DAILY 10/06/21 03/01/22 Acetaminophen [Acetaminophen Extra 1,000 mg PO BID 12/20/21 03/01/22 Strength] LORazepam [Ativan] 0.5 mg PO BID PRN 12/20/21 03/01/22 - Allergies Allergies/Adverse Reactions: Allergies Allergy/AdvReac Type Severity Reaction Status Date / Time No Known Drug Allergies Allergy Verified 03/13/22 03:26 - Social History Does the pt smoke?: No Smoking Status: Former smoker Does the pt drink ETOH?: No Does the pt have substance abuse?: No - Immunizations Immunizations are current?: No Immunizations: TDAP current <10years, Other immun current - POLST Patient has POLST: No PD ED PE NORMAL - Vitals Vital signs reviewed: Yes - General General: Alert and oriented X 3, No acute distress, Well developed/nourished - HEENT HEENT: Moist mucous membranes, Other (mild posterior o/p erythema without exudate or edema) - Neck Neck: Supple, no meningeal sign - Cardiac Cardiac: RRR - Respiratory Respiratory: No respiratory distress, Clear bilaterally - Abdomen Abdomen: Soft, Non tender - Back Back: No CVA TTP Results - Vitals Vitals: Oxygen O2 Source Room air - Labs Labs: Microbiology 03/13/22 03:48 Group A Strep Throat Culture - Final Throat MIXED OROPHARYNGEAL JIMENA PRESENT. NO BETA STREP PRESENT IN CULTURE. Laboratory Tests 03/13/22 03/13/22 03:48 03:48 Nasal Adenovirus (PCR) NOT DETECTED Nasal B. parapertussis DNA (PCR) NOT DETECTED Nasal Coronavir 229E PCR NOT DETECTED Nasal Coronavir HKU1 PCR NOT DETECTED Nasal Coronavir NL63 PCR NOT DETECTED Nasal Coronavir OC43 PCR NOT DETECTED Nasal Enterovir/Rhinovir PCR NOT DETECTED Nasal Influenza B PCR NOT DETECTED Nasal Influenza A PCR NOT DETECTED Nasal Parainfluen 1 PCR NOT DETECTED Nasal Parainfluen 2 PCR NOT DETECTED Nasal Parainfluen 3 PCR NOT DETECTED Nasal Parainfluen 4 PCR NOT DETECTED Nasal RSV (PCR) NOT DETECTED Nasal B.pertussis DNA PCR NOT DETECTED Nasal C.pneumoniae (PCR) NOT DETECTED Lukas Human Metapneumo PCR NOT DETECTED Nasal M.pneumoniae (PCR) NOT DETECTED Nasal SARS-CoV-2 (PCR) DETECTED A Group A Strep Rapid Negative PD MEDICAL DECISION MAKING - ED course Complexity details: reviewed results, re-evaluated patient, considered differential, d/w patient ED course: rapid strep negative. Respiratory PCR panel is positive for COVID. Results d/w patient. Paxlovid is discussed and he is interested in taking this medication. no significant conflicts found with his medications (vs paxlovid) except for trazadone, which is "moderate" level potential for interaction; levels of trazadone can be increased, leading to increased sedation and problems as sociated with over-sedation. I discussed this with patient and advised him to take half of his usual dose of trazadone. He says he has not found the trazadone to be particularly sedating and thus I explained to him that if his trazadone is taken as a single tablet QHS and the tablet is not scored/split-able, he can take his regular dose Departure - Departure Disposition: 01 Home, Self Care Clinical Impression: COVID-19 Condition: Good Instructions: ED Viral Syndrome Follow-Up: Ricky Johnson MD [Primary Care Provider] - Comments: You have tested POSITIVE for COVID-19 tonight. Take the Paxlovid (anti-viral medications) as per the instructions provided with the kit. This is a five-day course of medication. As we discussed, there is potential for interaction with your trazadone but not to an extent that contraindicates Paxlovid. If your trazadone is scored or "split-able", you can take a lower dose for the five days you are on the paxlovid; this is not absolutely necessary and so if your trazadone is not able to be split, you can take the dose you are on. Follow the CDC recommendations regarding isolation. These can be found by going to the appropriate website: using [employer], type in "cdc covid isolation"; on the results of the search, click on the link to the website beginning with https:\\\\www.cdc.gov. From there you will find information on isolation guidelines. Discharge Date/Time: 03/13/22 05:58
[2022-03-13 04:06] LABS: RAPID STREP SCREEN Negative (Negative)
[2022-03-13] MEDS ORDERED: KETOROLAC 15 MG/ML VIAL IM STA (04:06)
[2022-03-13 04:49] LABS: CORONAVIRUS 229E-RESP PCR NOT DETECTED; CORONAVIRUS HKU1-RESP PCR NOT DETECTED; CORONAVIRUS NL63-RESP PCR NOT DETECTED; CORONAVIRUS OC43-RESP PCR NOT DETECTED
[2022-03-13 04:50] LABS: B. PARAPERTUSSIS- RESP PCR PAN NOT DETECTED; B. PERTUSSIS- RESP PCR PANEL NOT DETECTED; C. PNEUMONIAE- RESP PCR PANEL NOT DETECTED; HUMAN METAPNEUMOVIRUS NOT DETECTED; INFLUENZA A- RESP PCR PANEL NOT DETECTED; INFLUENZA B - RESP PCR PANEL NOT DETECTED; M. PNEUMONIAE- RESP PCR PANEL NOT DETECTED; PARAINFLUENZA VIRUS 1 NOT DETECTED; PARAINFLUENZA VIRUS 2 NOT DETECTED; PARAINFLUENZA VIRUS 3 NOT DETECTED; PARAINFLUENZA VIRUS 4 NOT DETECTED; RHINOVIRUS/ENTEROVIRUS NOT DETECTED; RSV- RESP PCR PANEL NOT DETECTED; SARS-CoV-2 -RESP PCR PANEL DETECTED
[2022-03-13] MEDS ORDERED: NIRMATRELVIR/RITONAVIR PREPACK PO STA (05:50)
[2022-03-13 05:58] VITALS: BP 132/64
== END 2022-03-13 05:58 | disposition home or self-care (01) ==
LOC: ED 03:17 → SUPCPDRO 03:17 → ED 05:58
DX: U07.1 COVID-19 (principal); Z87.891 Personal history of nicotine dependence
CPT/HCPCS: 87070; 87430; 87633; 96372; 99283; J3490

== ENCOUNTER 2022-08-04 19:52 | Emergency (ER) | payer MEDICARE, OTHER ==
--- NOTE | 2022-08-04 20:39 | ED Physician Documentation ---
History of Present Illness - Stated complaint Stated Complaint: GLF - Chief complaint Chief Complaint: Trauma Hd/Nk - History obtained from History obtained from: Patient - Additonal information Additional information: This is a very nice 77-year-old gentleman who presents after a trip and fall in which he struck his right knee and right side of forehead. The patient states he has foot drop and wears a larger shoe on the right foot and he had gone out to the car because he forgot something, turned around and stumbled on his large shoe and fell onto the right knee and then struck his right forehead on the ground. He did not lose consciousness. He presents now due to right head contusion and right knee abrasion. He has mild headache that he states is getting better, denies any other injuries. No confusion or change in mental status. He states he was ambulatory after the injury, other than the right knee abrasion, denies any right knee pain. He denies any prodromal symptoms and states this was simply due to clumsiness. Review of Systems Ten Systems: 10 systems reviewed and negative (Except as noted per HPI) PD PAST MEDICAL HISTORY - Past Medical History Past Medical History: Yes Cardiovascular: Hypertension Respiratory: COPD Neuro: None Endocrine/Autoimmune: None GI: None : Other HEENT: None Psych: None Musculoskeletal: Osteoarthritis, Fatigue Derm: None - Past Surgical History Past Surgical History: Yes Ortho: Hip replacement, Other - Present Medications Home Medications: Ambulatory Orders Medication Instructions Recorded Confirmed traZODone [Desyrel] 150 mg PO DAILY PM 04/20/21 08/04/22 Sertraline [Zoloft] 150 mg PO DAILY 10/06/21 08/04/22 Acetaminophen [Acetaminophen Extra 1,000 mg PO BID 12/20/21 08/04/22 Strength] LORazepam [Ativan] 0.5 mg PO BID PRN 12/20/21 08/04/22 - Allergies Allergies/Adverse Reactions: Allergies Allergy/AdvReac Type Severity Reaction Status Date / Time No Known Drug Allergies Allergy Verified 08/04/22 20:04 - Social History Does the pt smoke?: No Smoking Status: Never smoker Does the pt drink ETOH?: No Does the pt have substance abuse?: No - Immunizations Immunizations are current?: No Immunizations: TDAP current <10years, Other immun current - POLST Patient has POLST: No PD ED PE NORMAL - Vitals Vital signs reviewed: Yes - General General: Alert and oriented X 3, No acute distress, Well developed/nourished - HEENT HEENT: Moist mucous membranes, Pharynx benign, Other (Right forehead contusion and hematoma with abrasion just above the right eyebrow. No other scalp injuries or depressions) - Neck Neck: Supple, no meningeal sign, No JVD - Cardiac Cardiac: RRR, No murmur - Respiratory Respiratory: No respiratory distress, Clear bilaterally - Abdomen Abdomen: Normal bowel sounds, Soft - Derm Derm: Normal color, Warm and dry, No rash - Extremities Extremities: No deformity, No tenderness to palpate, Normal ROM s pain, No edema, No calf tenderness / cord, Other (Abrasion and mild contusion on the right knee.) - Neuro Neuro: Alert and oriented X 3 Eye Opening: Spontaneous Motor: Obeys Commands Verbal: Oriented GCS Score: 15 - Psych Psych: Normal mood, Normal affect Results - Vitals Vitals: Vital Signs - 24 hr 08/04/22 20:05 Temperature 36.1 C L Heart Rate 65 Respiratory 16 Rate Blood Pressure 176/76 H O2 Saturation 97 Oxygen O2 Source Room air PD MEDICAL DECISION MAKING - ED course Complexity details: reviewed results, re-evaluated patient, considered differential, d/w patient ED course: This is a 77-year-old gentleman who tripped and fell and sustained a right forehead contusion hematoma as well as Right knee abrasion. We we will obtain a head CT given patient's age is greater than 65 and he did sustain head trauma though he is not on any anticoagulation and has neuro exam is normal. If this is normal, patient can be discharged home. He was advised to use a cool compress to help with the swelling on his forehead and may take Tylenol for pain. The right knee small abrasion was cleaned and dressed. Imaging of the right knee is not indicated. Departure - Departure Clinical Impression: Traumatic hematoma of forehead Qualifiers: Encounter type: initial encounter Qualified Code(s): S00.83XA - Contusion of other part of head, initial encounter Knee abrasion Qualifiers: Encounter type: initial encounter Laterality: right Qualified Code(s): S80.211A - Abrasion, right knee, initial encounter Condition: Good Instructions: ED Hematoma Comments: You presented after a trip and fall and sustained a hematoma to the right forehead. We have obtained a head CT which is reassuring. He can use a cool compress to help with swelling and pain, and you may take Tylenol as well. Keep the abrasions clean with gentle soap and water and monitor sites for infection. Return if you have any change in mental status, confusion or other new concerns
--- NOTE | 2022-08-04 22:50 | CT Report ---
PROCEDURE: HEAD WO INDICATIONS: head trauma, age > 65 TECHNIQUE: Noncontrast 4.5 mm thick angled axial sections acquired from the foramen magnum to the vertex. For r adiation dose reduction, the following was used: automated exposure control, adjustment of mA and/or kV according to patient size. COMPARISON: None. FINDINGS: Image quality: Excellent. CSF spaces: There is moderate cerebral volume loss with prominence of the ventricles and sulci. Basa l cisterns are patent. No extra-axial fluid collections. Brain: No intracranial hemorrhage, mass, or mass effect. Fermin-white matter interface is preserved. T here are subcortical and periventricular white matter hypodensities consistent with moderate chronic small vessel ischemic changes. Skull and face: Calvarium and visualized facial bones appear intact. There is right forehead soft t issue swelling. Sinuses: Visualized sinuses and mastoids are clear. IMPRESSION: 1. No acute intracranial abnormality. 2. Moderate cerebral volume loss and chronic white matter small vessel ischemic changes. Reviewed by: Gopi Burt MD on 08/04/2022 10:49 PM PST Approved by: Gopi Burt MD on 08/04/2022 10:49 PM PST Station ID: [id number]
[2022-08-04 23:14] VITALS: BP 166/91
--- NOTE | 2022-08-04 23:52 | XRAY Report ---
PROCEDURE: Knee 3 View RT INDICATIONS: fall, trauma TECHNIQUE: 3 views of the right knee were acquired. COMPARISON: None. FINDINGS: Bones: There is a mildly displaced longitudinal fracture through the patella laterally involving the lateral patellar facet. The visualized osseous structures appear osteopenic. No dislocation. There i s a partially visualized intramedullary roge within the distal shaft. Soft tissues: There is a small to moderate joint effusion. No suspicious soft tissue calcifications . IMPRESSION: 1. Mildly displaced patellar fracture. 2. Small to moderate joint effusion. 3. Osteopenia. Reviewed by: Gopi Andre MD on 08/05/2022 12:00 AM [facility] Approved by: Gopi Andre MD on 08/05/2022 12:00 AM [facility] Station ID: [id number]
== END 2022-08-04 23:13 | disposition home or self-care (01) ==
LOC: EDUNIT# → ED 19:52
DX: S00.83XA Contusion of other part of head, initial encounter (principal); S80.211A Abrasion, right knee, initial encounter; W01.0XXA Fall on same level from slipping, tripping and stumbling without subsequent striking against object, initial encounter; Y93.89 Activity, other specified; Y92.810 Car as the place of occurrence of the external cause
CPT/HCPCS: 99281; 99284

== ENCOUNTER → 2022-08-04 | Outpatient (CLI) | payer MEDICARE, OTHER | END | disposition critical access hospital (66) | LOC: EMS 19:33 | DX: S00.83XA Contusion of other part of head, initial encounter (principal); S80.211A Abrasion, right knee, initial encounter; W01.0XXA Fall on same level from slipping, tripping and stumbling without subsequent striking against object, initial encounter; Y92.481 Parking lot as the place of occurrence of the external cause | CPT/HCPCS: A0425; A0429 ==

== ENCOUNTER 2022-10-12 16:18 | Outpatient (CLI) | payer MEDICARE, OTHER | END 2022-10-12 16:19 | disposition critical access hospital (66) | LOC: EMS 16:18 | DX: R10.9 Unspecified abdominal pain (principal); R19.7 Diarrhea, unspecified; R11.0 Nausea; R51.9 Headache, unspecified | CPT/HCPCS: A0425; A0429 ==

== ENCOUNTER 2022-10-12 16:39 | Emergency (ER) | payer MEDICARE, OTHER ==
[2022-10-12] MEDS ORDERED: ONDANSETRON 4 MG/2 ML VIAL IVP STA (17:05)
[2022-10-12] MEDS ORDERED: SODIUM CHLORIDE 0.9% 1,000 ML IV STA (17:05)
--- NOTE | 2022-10-12 17:10 | ED Physician Documentation ---
History of Present Illness - Stated complaint Stated Complaint: ABD PX - Chief complaint Chief Complaint: Abd Pain - Additonal information Additional information: History is obtained in part from the patient though also review of records from his care facility. He is a poor historian. 77-year-old male who has a history of left renal cell cancer status post nephrectomy, known basal cell carcinoma, history of osteoporosis and previous al coholism presents to the emergency department for evaluation of 24 hours nausea. There has been no vomiting but has had 4-5 watery stools. Nonbloody. He is also reporting that he is having some substernal chest pain nonradiating for the last day as well. not exertional. No cough. No fevers. Denies dyspnea. Typically ambulates with a rolling walker. Review of Systems Constitutional: denies: Fever, Myalgias Cardiac: reports: Reviewed and negative Respiratory: reports: Reviewed and negative GI: reports: Abdominal Pain, Nausea, Diarrhea. denies: Vomiting : reports: Reviewed and negative Skin: reports: Reviewed and negative PD PAST MEDICAL HISTORY - Past Medical History Cardiovascular: Hypertension Respiratory: COPD Neuro: None Endocrine/Autoimmune: None GI: None : Other HEENT: None Psych: None Musculoskeletal: Osteoarthritis, Fatigue Derm: None - Past Surgical History Past Surgical History: Yes Ortho: Hip replacement, Other - Present Medications Home Medications: Ambulatory Orders Medication Instructions Recorded Confirmed traZODone [Desyrel] 150 mg PO DAILY PM 04/20/21 08/16/22 Sertraline [Zoloft] 150 mg PO DAILY 10/06/21 08/16/22 Acetaminophen [Acetaminophen Extra 1,000 mg PO BID 12/20/21 08/16/22 Strength] LORazepam [Ativan] 0.5 mg PO BID PRN 12/20/21 08/16/22 Losartan [Cozaar] 50 mg PO DAILY #30 tablet 10/12/22 Ondansetron Odt [Zofran] 4 mg TL Q6H PRN #10 tablet 10/12/22 - Allergies Allergies/Adverse Reactions: Allergies Allergy/AdvReac Type Severity Reaction Status Date / Time No Known Drug Allergies Allergy Verified 08/16/22 12:04 - Social History Does the pt smoke?: No Smoking Status: Never smoker Does the pt drink ETOH?: No Does the pt have substance abuse?: No - Immunizations Immunizations are current?: No Immunizations: TDAP current <10years, Other immun current - POLST Patient has POLST: No PD ED PE NORMAL - General General: Alert and oriented X 3, No acute distress - HEENT HEENT: Atraumatic, Moist mucous membranes - Neck Neck: Supple, no meningeal sign, No adenopathy - Cardiac Cardiac: RRR, No murmur, No gallop, Strong equal pulses - Respiratory Respiratory: No respiratory distress, Clear bilaterally - Abdomen Abdomen: Normal bowel sounds, Soft, Non tender (Generalized nonfocal abdominal tenderness. 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 Eye Opening: Spontaneous Motor: Obeys Commands Verbal: Oriented GCS Score: 15 Results - Vitals Vitals: Vital Signs - 24 hr 10/12/22 10/12/22 10/12/22 16:57 17:30 18:27 Temperature 37.1 C Heart Rate 60 59 L Respiratory 17 16 Rate Blood Pressure 136/100 H 206/83 H 190/88 H O2 Saturation 98 98 10/12/22 19:22 Temperature Heart Rate 69 Respiratory 20 Rate Blood Pressure 195/93 H O2 Saturation 94 Oxygen O2 Source Room air - EKG (time done) 1750 Rate: Rate (enter#) (60) Rhythm: NSR [place]: Normal Intervals: Normal CO QRS: Normal Ischemia: Normal ST segments Compare to prior EKG: Old EKG unavailable Computer interpretation: Agree with computer - Labs Labs: Laboratory Tests 10/12/22 10/12/22 10/12/22 17:08 17:24 17:24 WBC 6.6 RBC 4.43 L Hgb 12.7 L Hct 37.4 L MCV 84.4 MCH 28.7 MCHC 34.0 RDW 13.8 Plt Count 149 MPV 9.3 Neut # (Auto) 5.1 Lymph # (Auto) 0.8 L Boundary # (Auto) 0.5 Eos # (Auto) 0.1 Baso # (Auto) 0.1 Absolute Nucleated RBC 0.00 Nucleated RBC % 0.0 Sodium 132 L Potassium 3.9 Chloride 97 L Carbon Dioxide 23 Anion Gap 12.0 BUN 21 H Creatinine 1.0 Estimated GFR (MDRD) 72 L Glucose 101 H Calcium 10.5 H Total Bilirubin 0.6 AST 34 ALT 30 Alkaline Phosphatase 80 Troponin I High Sens Total Protein 7.6 Albumin 3.8 Globulin 3.8 Albumin/Globulin Ratio 1.0 Lipase 58 H Urine Color YELLOW Urine Clarity CLEAR Urine pH 8.5 H Ur Specific [place] 1.015 Urine Protein TRACE Urine Glucose (UA) NEGATIVE Urine Ketones NEGATIVE Urine Occult Blood NEGATIVE Urine Nitrite NEGATIVE Urine Bilirubin NEGATIVE Urine Urobilinogen 0.2 (NORMAL) Ur Leukocyte Esterase NEGATIVE Ur Microscopic Review NOT INDICATED Urine Culture Comments NOT INDICATED 10/12/22 17:24 WBC RBC Hgb Hct MCV MCH MCHC RDW Plt Count MPV Neut # (Auto) Lymph # (Auto) Boundary # (Auto) Eos # (Auto) Baso # (Auto) Absolute Nucleated RBC Nucleated RBC % Sodium Potassium Chloride Carbon Dioxide Anion Gap BUN Creatinine Estimated GFR (MDRD) Glucose Calcium Total Bilirubin AST ALT Alkaline Phosphatase Troponin I High Sens 6.8 Total Protein Albumin Globulin Albumin/Globulin Ratio Lipase Urine Color Urine Clarity Urine pH Ur Specific [place] Urine Protein Urine Glucose (UA) Urine Ketones Urine Occult Blood Urine Nitrite Urine Bilirubin Urine Urobilinogen Ur Leukocyte Esterase Ur Microscopic Review Urine Culture Comments - Rads (name of study) Ct abd Radiology: Final report received (Diverticulosis) PD Medical Decision Making - ED course Complexity details: reviewed results, re-evaluated patient, considered differential, d/w patient ED course: 77-year-old male who has a history of renal cell carcinoma status post nephrectomy as well as former alcoholism and osteoporosis presents to the emergency department for evaluation of epigastric abdominal pain nausea and diarrhea that began yesterday. He has had no fevers. On here in the emergency department some epigastric abdominal pain was elicited. I did obtain a CBC and electrolytes as well as urinalysis. Per my interpretation no findings to suggest acute infection in the urine. No worrisome leukocytosis or electrolyte derangement. As he does have a history of the renal cell Carcinoma CT of the abdomen was obtained. Reassuringly no acute findings were seen though we do note diverticulosis without findings of diverticulitis. Here in the emergency department the patient was given some IV fluids given the reported history of diarrhea as well as some Zofran and Dilaudid IV. On reevaluation the nausea has fully resolved as well as the pain. Patient was Departure - Departure Disposition: 01 Home, Self Care Clinical Impression: Nausea, Upper abdominal pain Diarrhea Qualifiers: Diarrhea type: unspecified type Qualified Code(s): R19.7 - Diarrhea, unspecified Hypertension Qualifiers: Hypertension type: unspecified Qualified Code(s): I10 - Essential (primary) hypertension Condition: Stable Record reviewed to determine appropriate education?: Yes Prescriptions: Losartan [Cozaar] 50 mg PO DAILY #30 tablet Ondansetron Odt [Zofran] 4 mg TL Q6H PRN #10 tablet PRN Reason: Nausea / Vomiting Comments: Vladimir you came to the emergency department because you have begun having some upper abdominal pain nausea and diarrhea. The labs today completed in the emergency department do not show any worrisome findings concerning for infection or electrolyte abnormalities. The CT of your abdomen does not show recurrence of the cancer. You do have diverticulosis though there are no findings to suggest inflammation within the colon. In order to manage your symptoms over the next 24 hours you may benefit from drinking clear liquids. I have sent a prescription for Zofran and the nausea medicine to the pharmacy. Your blood pressure has been elevated today and you were recently taking off the losartan. We will resume that and this prescription was also sent to [facility]. Is important you follow-up closely with your primary care provider. Return to the emergency department for fevers, uncontrolled vomiting black or bloody stools.
[2022-10-12 17:28] LABS: BASOPHILS # (AUTO) 0.1 10^3/uL (0.0-0.1); BASOPHILS % (AUTO) 1.4 %; EOSINOPHILS # (AUTO) 0.1 10^3/uL (0.0-0.7); EOSINOPHILS % (AUTO) 1.5 %; HCT - HEMATOCRIT 37.4 % (42.0-52.0); HGB - HEMOGLOBIN 12.7 g/dL (14.0-18.0); LYMPHOCYTES # (AUTO) 0.8 10^3/uL (1.5-3.5); MEAN CORPUSCULAR HEMOGLOBIN 28.7 pg (27.0-31.0); MEAN CORPUSCULAR VOLUME 84.4 fL (80.0-94.0); MEAN PLATELET VOLUME 9.3 fL (7.4-11.4); MONOCYTES # (AUTO) 0.5 10^3/uL (0.0-1.0); MONOCYTES % (AUTO) 7.5 %; NEUTROPHILS # (AUTO) 5.1 10^3/uL (1.5-6.6); NEUTROPHILS % (AUTO) 77.4 %; PLT - PLATELET COUNT 149 10^3/uL (130-450); RED BLOOD COUNT 4.43 10^6/uL (4.70-6.10); RED CELL DISTRIBUTION WIDTH 13.8 % (12.0-15.0); WHITE BLOOD COUNT 6.6 x10^3/uL (4.8-10.8)
[2022-10-12 17:38] LABS: BILIRUBIN,URINE NEGATIVE (NEGATIVE); GLUCOSE, URINE (UA) NEGATIVE (NEGATIVE); KETONES,URINE (UA) NEGATIVE (NEGATIVE); LEUKOCYTE ESTERASE, URINE NEGATIVE (NEGATIVE); NITRITE,URINE NEGATIVE (NEGATIVE); OCCULT BLOOD,URINE NEGATIVE (NEGATIVE); PH,URINE 8.5 PH (5.0-7.5); PROTEIN,URINE TRACE mg/dL (NEGATIVE); UROBILINOGEN,URINE 0.2 (NORMAL) E.U./dL (NORMAL)
[2022-10-12 17:39] LABS: CLARITY,URINE CLEAR (CLEAR)
[2022-10-12 17:43] LABS: ALBUMIN 3.8 g/dL (3.2-5.5); BILIRUBIN,TOTAL 0.6 mg/dL (0.2-1.0); CALCIUM 10.5 mg/dL (8.5-10.3); POTASSIUM 3.9 mmol/L (3.5-5.0); TOTAL PROTEIN 7.6 g/dL (6.7-8.2)
[2022-10-12] MEDS ORDERED: PROCHLORPERAZINE 10 MG/2 ML VIAL IVP STA (18:00)
[2022-10-12] MEDS ORDERED: HYDROmorphone 1 MG/ML CARPUJECT IVP STA (18:00)
[2022-10-12] MEDS ORDERED: iohexoL-300 100 ML VIAL ONE (18:10)
[2022-10-12] MEDS ORDERED: LOSARTAN 50 MG TABLET PO STA (18:27)
--- NOTE | 2022-10-12 19:34 | CT Report ---
PROCEDURE: ABDOMEN/PELVIS W INDICATIONS: nausea, diarreha; hx of left renal cell ca CONTRAST: 100mL Omni 300 TECHNIQUE: After the administration of IV contrast, 5 mm thick sections acquired from the diaphragms to the symp hysis. 5 mm thick coronal and sagittal reformats were acquired. For radiation dose reduction, the f ollowing was used: automated exposure control, adjustment of mA and/or kV according to patient size. COMPARISON: CT abdomen pelvis 02/22/2022 FINDINGS: Image quality: There is limited visualization of the pelvis secondary to artifact from hip arthropla sty. ABDOMEN: Lung bases: Lung bases are clear. Heart size is normal. Solid organs: Liver and spleen are normal in size. Multiple low-attenuation hepatic foci are present most suggestive of cysts and unchanged. Gallbladder has been removed Biliary system is non dilated . Pancreas enhances normally. No adrenal nodules. Left kidney is nonobstructive. Scarring versus pr ior surgical intervention is noted. Right nephrectomy is present. Renal fossa appearance is unchanged . Hyperdense exophytic focus is noted posterior on the left kidney, unchanged. Peritoneum and bowel: Bowel loops demonstrate normal wall thickness and caliber. Colonic diverticula without inflammatory change. No free fluid or air. Nodes and vessels: No retroperitoneal or mesenteric adenopathy by size criteria. Aorta and inferior vena cava are normal in size. Miscellaneous: No ventral hernias. PELVIS: Genitourinary: Bladder wall thickness is normal. Miscellaneous: No inguinal hernias or adenopathy. Bones: No suspicious bony lesions. Unchanged L3 compression deformity. IMPRESSION: Diverticulosis. Reviewed by: Annmarie Hanson MD on 10/12/2022 7:32 PM PST Approved by: Annmarie Hanson MD on 10/12/2022 7:32 PM PST Station ID: [id number]
[2022-10-12 20:11] VITALS: BP 187/86
[2022-10-12] MEDS ORDERED: iohexoL-300 100 ML VIAL IVP ONE (21:14)
== END 2022-10-12 20:09 | disposition home or self-care (01) ==
LOC: EDUNIT# → EDBD → SUPCPDRO 16:39 → ED 16:39
DX: R10.13 Epigastric pain (principal); R11.0 Nausea; R19.7 Diarrhea, unspecified; I10 Essential (primary) hypertension; J44.9 Chronic obstructive pulmonary disease, unspecified; Z85.528 Personal history of other malignant neoplasm of kidney; Z79.899 Other long term (current) drug therapy; Z90.5 Acquired absence of kidney
CPT/HCPCS: 36415; 74177; 80053; 81003; 83690; 84484; 85025; 93005; 96374; 96375; 99284; A9270; J1170; Q9967; 81001; 87086

== ENCOUNTER 2022-10-13 17:38 | Outpatient (CLI) | payer MEDICARE, OTHER | END 2022-10-13 17:39 | disposition critical access hospital (66) | LOC: EMS 17:38 | DX: I10 Essential (primary) hypertension (principal); F41.9 Anxiety disorder, unspecified; R25.1 Tremor, unspecified; R51.9 Headache, unspecified | CPT/HCPCS: A0425; A0429 ==

== ENCOUNTER 2022-10-13 18:02 | Emergency (ER) | payer MEDICARE, OTHER ==
[2022-10-13] MEDS ORDERED: LORazepam 2 MG/ML VIAL IVP STA (18:11)
--- NOTE | 2022-10-13 18:13 | ED Physician Documentation ---
History of Present Illness - Stated complaint Stated Complaint: ELEVATED BP - History obtained from History obtained from: Patient, EMS - History of Present Illness Timing: Chronic Pain level max: 0 Pain level now: 0 - Additonal information Additional information: Patient is a 77-year-old male who presents to the emergency department with complaint of high blood pressure. He states that been ongoing for some time. He states that he checks his blood pressure several times per day and usually becomes quite anxious and each time he takes it it moves higher and higher. He took a single dose of Ativan early this morning but has not taken any since. Does not have any chest pain, shortness of breath, abdominal pain. He was seen here yesterday for abdominal pain. Had no acute findings on CT scan. He also had no acute findings on laboratory testing. Review of Systems Constitutional: denies: Fever, Chills Nose: denies: Rhinorrhea / runny nose, Congestion Cardiac: denies: Chest pain / pressure, Palpitations Respiratory: denies: Dyspnea, Cough GI: denies: Abdominal Pain, Nausea, Vomiting, Diarrhea Skin: denies: Rash Musculoskeletal: denies: Neck pain, Back pain Neurologic: denies: Headache PD PAST MEDICAL HISTORY - Past Medical History Cardiovascular: Hypertension Respiratory: COPD Neuro: None Endocrine/Autoimmune: None GI: None : Other HEENT: None Psych: None Musculoskeletal: Osteoarthritis, Fatigue Derm: None - Past Surgical History Past Surgical History: Yes General: Cholecystectomy Ortho: Hip replacement, Other - Present Medications Home Medications: Ambulatory Orders Medication Instructions Recorded Confirmed traZODone [Desyrel] 150 mg PO DAILY PM 04/20/21 08/16/22 Sertraline [Zoloft] 150 mg PO DAILY 10/06/21 08/16/22 Acetaminophen [Acetaminophen Extra 1,000 mg PO BID 12/20/21 08/16/22 Strength] LORazepam [Ativan] 0.5 mg PO BID PRN 12/20/21 08/16/22 Losartan [Cozaar] 50 mg PO DAILY #30 tablet 10/12/22 Ondansetron Odt [Zofran] 4 mg TL Q6H PRN #10 tablet 10/12/22 - Allergies Allergies/Adverse Reactions: Allergies Allergy/AdvReac Type Severity Reaction Status Date / Time No Known Drug Allergies Allergy Verified 08/16/22 12:04 - Social History Does the pt smoke?: No Smoking Status: Never smoker Does the pt drink ETOH?: No Does the pt have substance abuse?: No - Immunizations Immunizations are current?: No Immunizations: TDAP current <10years, Other immun current - POLST Patient has POLST: No PD ED PE NORMAL - Vitals Vital signs reviewed: Yes - General General: Alert and oriented X 3, No acute distress - HEENT HEENT: PERRL, Moist mucous membranes - Neck Neck: Supple, no meningeal sign - Cardiac Cardiac: RRR, No murmur, Strong equal pulses - Respiratory Respiratory: No respiratory distress, Clear bilaterally - Abdomen Abdomen: Soft, Non tender, Non distended - Back Back: No CVA TTP, No spinal TTP - Derm Derm: Warm and dry, No rash - Extremities Extremities: No edema, No calf tenderness / cord - Neuro Neuro: Alert and oriented X 3 - Psych Psych: Normal mood, Normal affect Results - Vitals Vitals: Vital Signs - 24 hr 10/13/22 10/13/22 10/13/22 18:11 18:47 19:18 Temperature 37.3 C Heart Rate 77 83 Respiratory 26 H 20 Rate Blood Pressure 165/89 H 190/89 H O2 Saturation 99 100 Oxygen O2 Source Room air PD Medical Decision Making - ED course Complexity details: reviewed results, re-evaluated patient, considered differential, d/w patient ED course: 77-year-old male with asymptomatic hypertension. No chest pain. No shortness of breath. He was given a dose of his usual Ativan and the patient feels much improved, blood pressure down to around 160 systolic which is typical for him. Recommend that he decrease the frequency of checking his blood pressure at home as this seems to cause him significantly increased anxiety. No indication for laboratory testing at this time. Had normal laboratory testing yesterday. Had a CT scan that was without significant abnormality yesterday as well. We will have him follow-up with his PCP for further care. In accordance with the [facility] clinical policy from October 2012, this patient has asymptomatic elevated blood pressure without evidence of acute target organ injury. There are also no signs of acute stroke, cardiac ischemia, pulmonary edema, encephalopathy or acute congestive heart failure. Therefore the patient will be referred to their primary care provider for follow-up of their asymptomatic hypertension. Patient counseled regarding signs and symptoms for which I believe and urgent re-evaluation would be necessary. Patient with good understanding of and agreement to plan and is comfortable going home at this time This document was made in part using voice recognition software. While efforts are made to proofread this document, sound alike and grammatical errors may occur. Departure - Departure Disposition: 01 Home, Self Care Clinical Impression: Anxiety Hypertension Qualifiers: Hypertension type: unspecified Qualified Code(s): I10 - Essential (primary) hypertension Condition: Good Instructions: ED HTN Established, ED Panic Attack Follow-Up: AFSHAN BOGGS PA-C [Primary Care Provider] - Within 1 week Comments: Please follow-up with your doctor for further care. Please return if you worsen. Please make sure you are taking the lorazepam approximately every 8 hours to help with your anxiety. You only need to check your blood pressure 2-3 times per week. Discharge Date/Time: 10/13/22 19:39
[2022-10-13] MEDS ORDERED: ACETAMINOPHEN 325 MG TABLET PO STA (18:59)
[2022-10-13 19:20] VITALS: BP 190/89
== END 2022-10-13 19:39 | disposition home or self-care (01) ==
LOC: EDUNIT# → ED 18:02
DX: I10 Essential (primary) hypertension (principal); F41.9 Anxiety disorder, unspecified; J44.9 Chronic obstructive pulmonary disease, unspecified; Z79.899 Other long term (current) drug therapy
CPT/HCPCS: 96374; 99283; 99284; A9270; J2060

== ENCOUNTER 2023-09-27 16:16 | Outpatient (CLI) | payer MEDICARE, OTHER | END 2023-09-27 23:59 | disposition left against medical advice (07) | LOC: EMS 16:16 | DX: S01.81XA Laceration without foreign body of other part of head, initial encounter (principal); W01.0XXA Fall on same level from slipping, tripping and stumbling without subsequent striking against object, initial encounter; Y93.K1 Activity, walking an animal; Y92.098 Other place in other non-institutional residence as the place of occurrence of the external cause ==

== ENCOUNTER 2023-11-15 09:54 | Outpatient (CLI) | payer MEDICARE, OTHER | END 2023-11-15 09:55 | disposition home or self-care (01) | LOC: RT 09:54 | PROVIDERS: ATTEND Family Medicine | DX: I49.9 Cardiac arrhythmia, unspecified (principal) | CPT/HCPCS: 93005 ==

== ENCOUNTER 2024-02-09 17:09 | Outpatient (CLI) | payer MEDICARE, OTHER | END 2024-02-09 23:59 | disposition EMS.NT | LOC: EMS 17:09 | DX: Z03.89 Encounter for observation for other suspected diseases and conditions ruled out (principal) ==

== ENCOUNTER 2024-02-26 16:50 | Emergency (ER) | payer MEDICARE, OTHER ==
--- NOTE | 2024-02-26 18:06 | ED Physician Documentation ---
History of Present Illness - Stated complaint Stated Complaint: BILAT LEG PX - Chief complaint Chief Complaint: Ext Problem - History obtained from History obtained from: Patient - Additonal information Additional information: 78-year-old gentleman with history of lymphoma in remission, getting IVIG infusions presents accompanied by his daughter for progressive lower extremity pain of the last couple of weeks to months. He states he gets a very sharp pain on the top of his feet and it is worse when he walks. It is also worse at night and he feels like his feet are consistently cold. He has no history of vascular disease. There is been no swelling. The left is a little worse than the right. PD PAST MEDICAL HISTORY - Past Medical History Past Medical History: Yes Cardiovascular: Hypertension Respiratory: COPD Neuro: None Endocrine/Autoimmune: None GI: None : Other HEENT: None Psych: Depression, Anxiety Musculoskeletal: Osteoarthritis, Fatigue Derm: None Other Past Medical History: lymphoma in remission - Past Surgical History Past Surgical History: Yes General: Cholecystectomy Ortho: Hip replacement, Shoulder arthroplasty, Other - Present Medications Home Medications: Ambulatory Orders Medication Instructions Recorded Confirmed traZODone [Desyrel] 150 mg PO DAILY PM 04/20/21 02/26/24 Sertraline [Zoloft] 150 mg PO DAILY 10/06/21 02/26/24 Acetaminophen [Acetaminophen Extra 1,000 mg PO BID 12/20/21 02/26/24 Strength] LORazepam [Ativan] 0.5 mg PO BID PRN 12/20/21 02/26/24 Atorvastatin [Lipitor] 20 mg PO QPM #30 tablet 02/26/24 Losartan Potassium [Cozaar] 100 mg PO DAILY 02/26/24 02/26/24 amLODIPine [Norvasc] 7.5 mg PO DAILY 02/26/24 02/26/24 cilostazoL [Cilostazol] 100 mg PO BID #60 tab 02/26/24 hydrOXYzine HCL [Hydroxyzine HCl] 25 mg ORAL BID PRN 02/26/24 02/26/24 - Allergies Allergies/Adverse Reactions: Allergies Allergy/AdvReac Type Severity Reaction Status Date / Time No Known Drug Allergies Allergy Verified 02/26/24 17:05 - Social History Does the pt smoke?: No Smoking Status: Former smoker Does the pt drink ETOH?: No Does the pt have substance abuse?: No - Immunizations Immunizations are current?: No Immunizations: TDAP current <10years, Other immun current - POLST Patient has POLST: No PD ED PE NORMAL - Vitals Vital signs reviewed: Yes - General General: Alert and oriented X 3, No acute distress - Cardiac Cardiac: RRR, No murmur - Respiratory Respiratory: No respiratory distress, Clear bilaterally - Abdomen Abdomen: Normal bowel sounds, Soft, Non tender - Extremities Extremities: Other (Feet are warm but I do not feel pedal pulses per se. There is no tenderness of anywhere in the feet or legs.) - Neuro Neuro: Alert and oriented X 3 Results - Vitals Vitals: Vital Signs - 24 hr 02/26/24 02/26/24 17:05 19:13 Temperature 36.2 C L Heart Rate 44 L 55 L Respiratory 18 18 Rate Blood Pressure 186/13 H 172/96 H O2 Saturation 98 99 Oxygen O2 Source Room air - Labs Labs: Laboratory Tests 02/26/24 02/26/24 02/26/24 18:27 18:27 18:27 WBC 5.2 RBC 4.49 L Hgb 13.0 L Hct 38.3 L MCV 85.3 MCH 29.0 MCHC 33.9 RDW 13.2 Plt Count 151 MPV 9.3 Neut # (Auto) 3.7 Lymph # (Auto) 0.8 L [place] # (Auto) 0.4 Eos # (Auto) 0.2 Baso # (Auto) 0.1 Absolute Nucleated RBC 0.00 Nucleated RBC % 0.0 PT 11.4 INR 1.0 Sodium 132 L Potassium 4.1 Chloride 95 L Carbon Dioxide 31 Anion Gap 6.0 BUN 14 Creatinine 0.9 Estimated GFR (MDRD) 81 L Glucose 94 Calcium 10.0 Total Bilirubin 0.4 AST 21 ALT 17 Alkaline Phosphatase 64 Total Protein 7.1 Albumin 4.3 Globulin 2.8 Albumin/Globulin Ratio 1.5 PD Medical Decision Making - ED course ED course: He presents with symptoms of worsening claudication and has nonpalpable pedal pulses. Per the RDMS he does have blood flow to both feet with monophasic flow only and high velocities confirming the diagnosis of peripheral vascular disease. He is started on cilostazol and recommended aspirin and a statin. His daughter works in [place] and knows the vascular surgeons there and plans to follow-up which is appropriate. CBC showing mild anemia. INR normal. CMP showing mild hyponatremia. Departure - Departure Disposition: 01 Home, Self Care Clinical Impression: PVD (peripheral vascular disease) Condition: Good Record reviewed to determine appropriate education?: Yes Instructions: ED PVD Prescriptions: cilostazoL [Cilostazol] 100 mg PO BID #60 tab Atorvastatin [Lipitor] 20 mg PO QPM #30 tablet Comments: I sent your prescription electronically to [facility] in [place]. As discussed, you do have peripheral vascular disease. You should take a baby aspirin a day and in addition to that I am prescribing an anticholesterol medication and something that helps with the blood flow in the feet. Follow-up with the vascular surgeon which her daughter is already planning on doing, next available appointment. Return for new or worsening symptoms. Forms: PCP List
[2024-02-26 18:34] LABS: BASOPHILS # (AUTO) 0.1 10^3/uL (0.0-0.1); BASOPHILS % (AUTO) 2.1 %; EOSINOPHILS # (AUTO) 0.2 10^3/uL (0.0-0.7); EOSINOPHILS % (AUTO) 3.9 %; HCT - HEMATOCRIT 38.3 % (42.0-52.0); LYMPHOCYTES # (AUTO) 0.8 10^3/uL (1.5-3.5); LYMPHOCYTES % (AUTO) 15.5 %; MEAN CORPUSCULAR HGB CONC 33.9 g/dL (32.0-36.0); MEAN CORPUSCULAR VOLUME 85.3 fL (80.0-94.0); MEAN PLATELET VOLUME 9.3 fL (7.4-11.4); MONOCYTES # (AUTO) 0.4 10^3/uL (0.0-1.0); MONOCYTES % (AUTO) 7.6 %; NEUTROPHILS # (AUTO) 3.7 10^3/uL (1.5-6.6); NEUTROPHILS % (AUTO) 70.9 %; PLT - PLATELET COUNT 151 10^3/uL (130-450); RED BLOOD COUNT 4.49 10^6/uL (4.70-6.10); RED CELL DISTRIBUTION WIDTH 13.2 % (12.0-15.0); WHITE BLOOD COUNT 5.2 x10^3/uL (4.8-10.8)
[2024-02-26 18:40] LABS: PT - PROTHROMBIN TIME 11.4 secs (9.9-12.6)
[2024-02-26 18:47] LABS: ALBUMIN 4.3 g/dL (3.2-5.5); ALBUMIN/GLOBULIN RATIO 1.5 (1.0-2.2); BILIRUBIN,TOTAL 0.4 mg/dL (0.2-1.0); CREATININE 0.9 mg/dL (0.6-1.3); POTASSIUM 4.1 mmol/L (3.5-4.5); TOTAL PROTEIN 7.1 g/dL (6.4-8.9)
[2024-02-26 19:37] VITALS: O2SAT 99
[2024-02-26 21:42] VITALS: BP 155/98
--- NOTE | 2024-02-26 22:23 | Ultrasound Report ---
PROCEDURE: Arterial Duplex Lwr Ext BL INDICATIONS: leg pain TECHNIQUE: Color and pulse Doppler interrogation was performed of both lower extremity arterial systems, with im age documentation. COMPARISON: None FINDINGS: Right lower extremity: Common femoral artery: 69.5 cm/sec, with triphasic flow. Deep femoral artery: 43 cm/sec, with biphasic flow. Proximal superficial femoral artery: 58.2 cm/sec, with biphasic flow. Mid superficial femoral artery: 64.0 cm/sec, with biphasic flow. Distal superficial femoral artery: 69.3 cm/sec, with biphasic flow. Popliteal artery: 52.6 cm/sec, with biphasic flow. Posterior tibial artery: 115.9 cm/sec, with biphasic flow. Anterior tibial artery/dorsalis pedis: 43.6/18.9 cm/sec, with biphasic flow. Fermin-scale imaging description: No significant atherosclerotic plaque. Left lower extremity: Common femoral artery: 106 cm/sec, with biphasic flow. Deep femoral artery: 74.7 cm/sec, with biphasic flow. Proximal superficial femoral artery: 86.4 cm/sec, with biphasic flow. Mid superficial femoral artery: 74.7 cm/sec, with biphasic flow. Distal superficial femoral artery: 63.9 cm/sec, with biphasic flow. Popliteal artery: 41.9 cm/sec, with biphasic flow. Posterior tibial artery: 50.6 cm/sec, with biphasic flow. Anterior tibial artery/dorsalis pedis: 25.2/12.8 cm/sec, with monophasic flow. Fermin-scale imaging description: No significant atherosclerotic plaque. IMPRESSION: No hemodynamically significant stenosis are seen in bilateral lower extremity arteries. Reviewed by: Porfirio Mckay MD on 02/26/2024 10:21 PM PDT Approved by: Porfirio Mckay MD on 02/26/2024 10:21 PM PDT Station ID: [id number]
== END 2024-02-26 21:38 | disposition home or self-care (01) ==
LOC: ED 16:50
DX: I73.9 Peripheral vascular disease, unspecified (principal); Z87.891 Personal history of nicotine dependence
CPT/HCPCS: 36415; 80053; 85025; 85610; 93925; 99284